=== PATIENT | male | born 1980 | race African-American/Black ===

== ENCOUNTER 2018-07-28 18:00 | Emergency (ER) | payer OTHER | END 2018-07-28 19:30 | disposition home or self-care (01) | LOC: E/R 19:30 | DX: J70.5 Respiratory conditions due to smoke inhalation (principal); R07.9 Chest pain, unspecified; R53.83 Other fatigue; I10 Essential (primary) hypertension; I25.10 Atherosclerotic heart disease of native coronary artery without angina pectoris | CPT/HCPCS: 93005; 99283-25 ==